=== PATIENT | female | born 1980 | race Caucasian/White ===

== ENCOUNTER → 2016-11-22 | Outpatient (CLI) | payer BC | END | disposition short-term general hospital (02) | LOC: CLSURG 09:42 | DX: K82.8 Other specified diseases of gallbladder (principal) ==

== ENCOUNTER 2016-12-06 09:23 | Day surgery (SDC) | payer BC ==
[~2016-12-06] VITALS: Ht 162.6 cm; Wt 83.9 kg
== END 2016-12-06 14:15 | disposition short-term general hospital (02) ==
LOC: SURGOP 09:23
PROC: 0FT44ZZ Resection of Gallbladder, Percutaneous Endoscopic Approach (ICD-10-PCS; principal; 2016-12-06)
DX: K82.8 Other specified diseases of gallbladder (principal); E66.9 Obesity, unspecified; Z87.891 Personal history of nicotine dependence; Z79.899 Other long term (current) drug therapy; Z98.890 Other specified postprocedural states
CPT/HCPCS: J0131; J1100; J1885; J1956; J2250; J2405; J2710; J2765; J3010

== ENCOUNTER → 2016-12-18 | Outpatient (CLI) | payer BC | END | disposition short-term general hospital (02) | LOC: CLSURG 08:23 | DX: Z48.815 Encounter for surgical aftercare following surgery on the digestive system (principal); Z90.49 Acquired absence of other specified parts of digestive tract ==